=== PATIENT | female | born 1955 | race Caucasian/White ===

== ENCOUNTER 2016-12-31 14:28 | Emergency (ER) | payer OTHER ==
[~2016-12-31] VITALS: Ht 162.6 cm; Wt 104.5 kg
[~2016-12-31 14:28] MED LIST: ADVIL,NUPRIN,M200 MG PO; AMLODIPINE BESYL5 MG PO; ATORVASTATIN CA40 MG PO; Aspirin PO; BENAZEPRIL HCL20 MG PO; BUSPAR10 MG PO; Bactrim,Septra DS 80 PO; CLONIDINE1 EAC1 TD; ERGOCALCIF50000 UNIT PO; Ecotrin PO; FLONASE16 G1 BOTH NARES; FOLIC ACID1 MG PO; KEFLEX500 MG PO; LITE COAT ASPI325 M1 PO; LOTENSIN20 MG PO; MELOXICAM15 MG PO; METOPROLOL TART25 MG PO; PAIN RELIEF650 MG PO; Proventil,Ventolin H IH; RANITIDINE HCL150 M1 PO; SIMVASTATIN40 MG PO; ST. JOSEPH ASPI81 MG PO; THIAMINE HCL100 MG PO; TYLENOL PM EX-1 EACH PO; Tylenol Regular Stre PO; VENTOLIN HFA18 GM IH; ZOCOR40 MG PO; Zithromax PO; predniSONE PO
[2016-12-31 18:02] LABS: HEMATOCRIT 45.6 % (36.0-46.0); MCH 30.1 PG (29.0-34.0); MCHC 34.2 G/DL (30.0-36.0); MCV 87.9 FL (83-99); MEAN PLAT.VOLUME 9.9 uM^3 (9.5-12.4); PLATELET COUNT 270 K/uL (156-360); RBC DIS.WIDTH-CV 13.3 % (11.8-14.6); RED BLOOD COUNT 5.19 M/uL (3.80-5.20); WHITE BLOOD COUNT 11.5 K/uL (4.1-10.2)
[2016-12-31 18:03] LABS: CHLORIDE 110 mEq/L (99-109); POTASSIUM 4.5 mEq/L (3.7-5.4); SODIUM 141 mEq/L (136-147)
[2016-12-31 18:05] LABS: GLUCOSE 85 mg/dL (70-99)
[2016-12-31 18:06] LABS: ANION GAP 12 MEQ/L (2-14)
[2016-12-31 18:09] LABS: GFR ESTIMATE (CALCULATED) > 59 mL/min/; UREA NITROGEN (BUN) 23 mg/dL (9-23)
[2016-12-31] MEDS ORDERED: NAPROSYN500 MG PO (18:14)
[2016-12-31] MEDS ORDERED: FLEXERIL10 MG PO (18:14)
[2016-12-31 18:17] LABS: INTER. NORMALIZED RATIO 1.1; PROTHROMBIN TIME 10.9 (9.2-11.2); PTT 28.2 (25-32)
[2016-12-31 18:44] VITALS: BP 116/80
== END 2016-12-31 18:45 | disposition home or self-care (01) ==
LOC: EME 14:28
PROVIDERS: Nurse Practitioner Family
DX: M54.41 Lumbago with sciatica, right side (principal); I10 Essential (primary) hypertension; J45.909 Unspecified asthma, uncomplicated; J44.9 Chronic obstructive pulmonary disease, unspecified; Z95.2 Presence of prosthetic heart valve; Z88.0 Allergy status to penicillin; Z91.018 Allergy to other foods; Z91.048 Other nonmedicinal substance allergy status; Z72.0 Tobacco use
CPT/HCPCS: 71020; 80048; 85027; 85610; 85730; 93971; 99281; 99284; J1885

== ENCOUNTER 2017-07-02 05:35 | Emergency (ER) | payer OTHER ==
[~2017-07-02] VITALS: Ht 162.6 cm; Wt 113.3 kg
[~2017-07-02 05:35] MED LIST changes: +FLEXERIL10 MG PO; +NAPROSYN500 MG PO
[2017-07-02 06:49] LABS: BASOPHIL COUNT 0.1 K/uL (0-0.1); EOSINOPHIL (%) 3.1 % (0-5); EOSINOPHIL COUNT 0.3 K/uL (0-0.3); HEMATOCRIT 40.7 % (36.0-46.0); IMMATURE GRANULOCYTE (%) 0.1 % (0.0-0.7); INSTRUMENT ABS NEUTROPHIL CT 4.3 K/uL; LYMPHOCYTE COUNT 2.9 K/uL (1.0-2.8); MCH 31.1 PG (29.0-34.0); MCHC 33.4 G/DL (30.0-36.0); MCV 92.9 FL (83-99); MEAN PLAT.VOLUME 10.7 uM^3 (9.5-12.4); MONOCYTE (%) 7.3 % (3-12); MONOCYTE COUNT 0.6 K/uL (0-0.8); NEUTROPHIL (%) 53.3 % (45-76); NEUTROPHIL COUNT 4.3 K/uL (1.8-6.4); PLATELET COUNT 194 K/uL (156-360); RBC DIS.WIDTH-CV 12.4 % (11.8-14.6); RBC DIS.WIDTH-SD 42.7 % (39-53); RED BLOOD COUNT 4.38 M/uL (3.80-5.20); WHITE BLOOD COUNT 8.1 K/uL (4.1-10.2)
[2017-07-02 07:24] LABS: ANION GAP 10 MEQ/L (2-14); CHLORIDE 106 MEQ/L (99-109); DIRECT BILIRUBIN 0.1 mg/dL (0.0-0.3); POTASSIUM 4.2 MEQ/L (3.7-5.4); SAMPLE HEMOLYSIS CHECK 0; SAMPLE ICTERIC CHECK 0; SAMPLE LIPEMIA CHECK 0; SODIUM 141 MEQ/L (136-147); TOTAL BILIRUBIN 0.3 MG/DL (0.0-1.0)
[2017-07-02 07:30] LABS: ALKALINE PHOSPHATASE 83 IU/L (3-129); GFR ESTIMATE (CALCULATED) 49 mL/min/; GLUCOSE 106 mg/dL (70-99); UREA NITROGEN (BUN) 23 mg/dL (9-23)
[2017-07-02 08:46] LABS: ADD MIUA? YES; BILIRUBIN NEGATIVE; BLOOD SMALL; COLOR STRAW ((YELLOW)); GLUCOSE (STRIP) NEGATIVE; KETONES NEGATIVE; LEUKOCYTES NEGATIVE; NITRITE NEGATIVE; PROTEIN (STRIP) NEGATIVE; SPECIFIC GRAVITY 1.011 (1.000-1.030); UROBILINOGEN 0.2 MG/DL (0.2-1.0)
[2017-07-02 09:13] LABS: BACTERIA RARE /HPF; EPITHELIAL CELLS RARE /HPF; MUCUS TRACE /LPF; RED BLOOD CELLS 0-5 /HPF (0-5); UCUL ADDED? NO; WHITE BLOOD CELLS 0-5 /HPF (0-5)
[2017-07-02] MEDS ORDERED: TYLENOL WITH C1 EACH PO (09:32)
[2017-07-02 10:04] VITALS: BP 178/80
== END 2017-07-02 10:05 | disposition home or self-care (01) ==
LOC: EME 05:35
PROVIDERS: Emergency Medicine
DX: M54.89 Other dorsalgia (principal); R32 Unspecified urinary incontinence; K57.30 Diverticulosis of large intestine without perforation or abscess without bleeding; I10 Essential (primary) hypertension; E78.5 Hyperlipidemia, unspecified; Z95.2 Presence of prosthetic heart valve; F17.200 Nicotine dependence, unspecified, uncomplicated
CPT/HCPCS: 71020; 74176; 80048; 80076; 81003; 85025; 99281; 99285; J2270; J7030